=== PATIENT | female | born 1995 | race Caucasian/White ===

== ENCOUNTER 2017-02-28 23:51 | Emergency (ER) | payer BC ==
[~2017-02-28] VITALS: Ht 154.9 cm; Wt 61.2 kg
[2017-03-01] MEDS ORDERED: NO MEDICATIONS (00:21)
== END 2017-03-01 00:57 | disposition home or self-care (01) ==
LOC: SED 23:51
DX: K05.00 Acute gingivitis, plaque induced (principal)
CPT/HCPCS: 99282